=== PATIENT | male | born 1955 | race Caucasian/White ===

== ENCOUNTER 2019-08-06 09:53 | Day surgery (SDC) | payer OTHER ==
[2019-08-06] MEDS ORDERED: Bupivacaine 0.25% 30 ML SDV IARTIC ONE (09:54)
[2019-08-06] MEDS ORDERED: Triamcinolone Acetonide 40 MG/ML 1 ML MDV IM ONE (09:54)
[2019-08-06 11:00] VITALS: BP 108/63; PULSE 61
--- NOTE | 2019-08-06 12:13 | PCM.SN ---
- Free Text/Narrative Note: ANESTHESIA CHRONIC PAIN SERVICE Date: 08/06/2019 Time: 1033 to 1053 Indication: ICD-10 M54.41 Lumbar back Pain with radiculopathy affecting right leg [ 724.2, 724.3 ] MRI 05/29/2019 - 1. Mild Degenerative Disc Disease [DDD] throughout the lumbar spine. - 2. Exiting right L2 nerve root does come in close approximation to the extraforaminal disk bulge. - 3. No obvious nerve root impingement. - 4. Mild Canal narrowing at L4-5 due to circumferential disk bulge. Anesthesia was requested by Dr. Dawn Alvarado D.O. for an Epidural Steroid Injection [MIRELLA] for this patient. Procedure: Single shot MIRELLA without Fluoroscopy [CPT code 91546]. This patient has had chronic low back pain for several years with a history of a single "nerve" injection and Chiropractic treatments. Currently, nothing is working [doing P.T.] to relieve his pain. Today, he describes the pain has low back radiating to his right hip around to the anterior thigh down to and around the knee stopping mid-calf. It is sharp, tingling and intermittent. No motor or sensory loss. It has in the past also included his left leg too. Does have a history of Diabetes type2 well controlled. No blood thinners or previous back surgery. He rates his pain at least a 5/10. I discussed the treatment options including a lumbar MIRELLA. Risks and benefits of a MIRELLA are discussed with him and his spouse including PDPH or spinal, increased back pain or failure. He is aware of the steroid and the DM implications. He wishes to proceed and a consent was obtained. He will be alert and orientated throughout this procedure. For monitors a NIBP, SpO2 and heart rate are placed and there is no sedation given. For vital signs please see the nursing notes. He is placed in a sitting position with his lumbar area prepped with Betadine X 3 sponges and allowed to dry. Using aseptic technique, I applied a large, sterile plastic drape and then infiltrated the L2-3 interspace with 5 ml's of 1 % Lidocaine plain. I then inserted and advanced a Perifix 17 Ga. x 3.5 In. Touhy Epidural Needle to the 6 cm distance with a positive MICHAEL with no CSF/ blood return. No paraesthesia's noted. I then slowly injected 2 ml's of .25% Marcaine, 40 mg's of Kenalog and 7 ml's of Preservative-Free Sodium Chloride [ total volume 10 ml's] without complications or complaints. The patient tolerated this procedure very well. He was placed on his right side for 10 minutes and stated that his back pain was "a lot better, maybe a 2 at the most". He was discharged home with his spouse without problems. Thank you for using this service. Ru Almaraz CRNA Bernadine
== END 2019-08-06 11:08 | disposition home or self-care (01) ==
LOC: FB.SDS 09:53 → EDSTATUS 10:30 → FB.SDS 11:08
PROVIDERS: ATTEND Nurse Practitioner Family
DX: G89.29 Other chronic pain (principal); M51.16 Intervertebral disc disorders with radiculopathy, lumbar region
CPT/HCPCS: 82962; J3301; J3490